=== PATIENT | female | born 1955 | race African-American/Black ===

== ENCOUNTER 2022-02-07 18:43 | Inpatient (IN) | payer OTHER ==
[~2022-02-07] VITALS: Ht 167.6 cm; Wt 125.3 kg
[2022-02-07 19:54] LABS: BASOPHILS % 0.4 % (0.0-2.0); EOSINOPHILS % 0.8 % (0.0-5.0); HEMATOCRIT. 38.8 % (36.0-48.0); HEMOGLOBIN. 12.6 g/dL (12.0-16.0); LYMPHOCYTES % 10.1 % (20.0-50.0); MEAN PLATELET VOLUME 8.1 fl (7.4-10.4); MONOCYTES % 9.1 % (2.0-8.0); NEUTROPHILS % 79.6 % (40.0-76.0); PLATELET 230 x1000/uL (130-400); RED BLOOD CELL COUNT 4.51 mill/uL (4.2-5.4); RED CELL DISTRIBUTION WIDTH 14.3 % (11.6-14.6)
[2022-02-07 19:59] LABS: CHLORIDE 97 mEq/L (98-107)
[2022-02-07 20:06] LABS: ETHANOL BLOOD < 10 mg/dL
[2022-02-07] MEDS ORDERED: IOHEXOL-350 100 ML BOTTLE ONE (20:06)
[2022-02-07 20:13] LABS: CLARITY URINE CLEAR (CLEAR); COLOR URINE YELLOW (YELLOW); KETONES URINE 1+ (NEGATIVE); LEUKOCYTE ESTERASE URINE NEGATIVE (NEGATIVE); NITRITE URINE NEGATIVE (NEGATIVE); OCCULT BLOOD URINE NEGATIVE (NEGATIVE); PROTEIN URINE NEGATIVE (NEGATIVE); SPECIFIC GRAVITY URINE 1.023 (1.005-1.030); UROBILINOGEN URINE 0.2 E.U./dL (0.2-1.0)
[2022-02-07] MEDS ORDERED: ACETAMINOPHEN 325MG TABLET PO ONE (20:15)
[2022-02-07] MEDS ORDERED: SODIUM CHLORIDE 0.9% 1,000 ML IV ONE (20:15)
[2022-02-07 20:23] LABS: *AMPHETAMINES SCREEN URINE NEGATIVE (NEGATIVE); *BARBITURATES SCREEN URINE NEGATIVE (NEGATIVE); *BENZODIAZEPINES SCREEN URINE NEGATIVE (NEGATIVE); *COCAINE SCREEN URINE NEGATIVE (NEGATIVE); CANNABINOID URINE SCREEN NEGATIVE (NEGATIVE); METHADONE URINE SCREEN NEGATIVE (NEGATIVE); OPIATES URINE SCREEN NEGATIVE (NEGATIVE); PHENCYCLIDINE URINE SCREEN NEGATIVE (NEGATIVE)
[2022-02-07] MEDS ORDERED: VANCOMYCIN 1G PREMIX 200 ML IV SCH (20:30)
[2022-02-07] MEDS ORDERED: CEFTRIAXONE 2 G PREMIX 50 ML IV ONE (20:30)
[2022-02-07] MEDS ORDERED: AMPICILLIN 2,000 MG in SODIUM CHLORIDE 0.9% 100 ML IV SCH (20:30)
[2022-02-07 21:03] LABS: BG BASE EXCESS -0.2 mmol/L (-2.0-2.0); BG CARBOXYHEMOGLOBIN 0.9 % (0.5-1.5); BG DEOXYHEMOGLOBIN 7.3 % (0.0-5.0); BG FRACTION INSPIRED OXYGEN 21; BG METHEMOGLOBIN 0.1 % (0.0-1.5); BG OXYGEN SATURATION 92.6 % (92.0-98.5); BG OXYHEMOGLOBIN 91.7 % (94.0-97.0); BG PCO2 33.1 mmHg (35.0-45.0); BG PO2 63.9 mmHg (75.0-100.0); BG SAMPLE SITE RIGHT RADIAL; BG TOTAL HEMOGLOBIN 12.9 g/dL (12.0-18.0); BG VENT MODE ROOM AIR
[2022-02-07] MEDS ORDERED: ACETAMINOPHEN 325MG SUPP PR PRN (23:23)
[2022-02-08] MEDS ORDERED: ACETAMINOPHEN 650MG SUPP PR PRN ×2 (04:00)
[2022-02-08] MEDS ORDERED: DEXTROSE 50% WATER 50ML SYRINGE IV PRN (04:00)
[2022-02-08] MEDS ORDERED: HYDRALAZINE 20MG/ML VIAL IV PRN (04:00)
[2022-02-08] MEDS ORDERED: ONDANSETRON HCL 4MG/2ML INJ IV PRN (04:00)
[2022-02-08] MEDS ORDERED: IPRATROPIUM/ALBUTEROL 0.5-3(2.5)MG/3ML NEB NEB PRN (04:00)
[2022-02-08] MEDS: SODIUM CHLORIDE 0.9% 1,000 ML IV SCH ×2 (05:03→22:51)
[2022-02-08 06:29] LABS: BASOPHILS % 0.6 % (0.0-2.0); EOSINOPHILS % 0.3 % (0.0-5.0); HEMATOCRIT. 41.7 % (36.0-48.0); LYMPHOCYTES % 15.9 % (20.0-50.0); MEAN CORPUSCULAR HEMOGLOBIN 28.8 pg (28.0-32.0); MEAN CORPUSCULAR VOLUME 85.8 fL (81.0-99.0); MEAN PLATELET VOLUME 8.2 fl (7.4-10.4); MONOCYTES % 10.8 % (2.0-8.0); NEUTROPHILS % 72.4 % (40.0-76.0); PLATELET 193 x1000/uL (130-400); RED BLOOD CELL COUNT 4.85 mill/uL (4.2-5.4); RED CELL DISTRIBUTION WIDTH 14.1 % (11.6-14.6)
[2022-02-08 06:37] LABS: CHLORIDE 97 mEq/L (98-107)
[2022-02-08 06:40] LABS: HDL CHOLESTEROL 41 mg/dL (40-59); LDL CHOLESTEROL 90 mg/dL (5-100)
[2022-02-08] MEDS: INSULIN LISPRO 100 UNITS/ML SUBCUT SCH ×4 (06:45→21:51)
[2022-02-08] MEDS: PIPERACILLIN/TAZOBACTAM 3.375 G in DEXTROSE 5% WATER 50 ML IV SCH ×3 (06:46→22:53)
[2022-02-08] MEDS: BLOOD SUGAR DIAGNOSTIC STRIP TEST SCH ×4 (06:46→21:51)
[2022-02-08] MEDS ORDERED: VANCOMYCIN 1G PREMIX 200 ML IV SCH (09:15)
[2022-02-08] MEDS ORDERED: VANCOMYCIN 1.25GM PMX (XELLIA) 250 ML IV SCH (14:00)
[2022-02-08 16:28] VITALS: BP 134/56
[2022-02-08 16:29] VITALS: BP 175/87
[2022-02-08] MEDS ORDERED: HYDROCODONE/ACETAMINOPHEN 5/325MG TABLET PO PRN (17:00)
[2022-02-08] MEDS ORDERED: MAGNESIUM/ALUMINUM HYDROXIDE/SIMETHICONE 30ML UDC PO PRN (17:00)
[2022-02-08] MEDS ORDERED: NALOXONE HCL 0.4MG/ML VIAL IV PRN (17:15)
[2022-02-08] MEDS: ASPIRIN 81MG TABLET PO SCH (17:35)
[2022-02-08] MEDS ORDERED: *PATIENT'S OWN MEDICATION STORAGE XX SCH (18:15)
[2022-02-08] MEDS ORDERED: DICL75TA5 PO (19:41)
[2022-02-08 20:00] VITALS: BP 114/54
[2022-02-08] MEDS: FAMOTIDINE 20MG TABLET PO SCH (21:49)
[2022-02-08] MEDS: ENOXAPARIN 30MG/0.3ML SYR SUBCUT SCH (21:50)
[2022-02-08] MEDS: ACETAMINOPHEN 325MG TABLET PO PRN (23:43)
[2022-02-09] VITALS: BP 108/71
[2022-02-09] MEDS ORDERED: Metformin (04:39)
[2022-02-09] MEDS: PIPERACILLIN/TAZOBACTAM 3.375 G in DEXTROSE 5% WATER 50 ML IV SCH ×3 (06:45→22:44)
[2022-02-09] MEDS: BLOOD SUGAR DIAGNOSTIC STRIP TEST SCH ×4 (06:45→21:00)
[2022-02-09] MEDS: VANCOMYCIN 1GM PMX (XELLIA) 200 ML IV SCH (06:45)
[2022-02-09] MEDS ORDERED: OMEP10CA5 MT (07:30)
[2022-02-09] MEDS ORDERED: hum (07:30)
[2022-02-09] MEDS ORDERED: ATOR10TA69 MT (07:30)
[2022-02-09] MEDS ORDERED: ATEN-42 PO (07:30)
[2022-02-09] MEDS ORDERED: METF-414 MT (07:32)
[2022-02-09] MEDS ORDERED: humalog (07:32)
[2022-02-09 08:00] VITALS: BP 153/59
[2022-02-09] MEDS: ENOXAPARIN 30MG/0.3ML SYR SUBCUT SCH ×2 (08:20→22:28)
[2022-02-09] MEDS: ASPIRIN 81MG TABLET PO SCH (08:20)
[2022-02-09] MEDS: FAMOTIDINE 20MG TABLET PO SCH ×2 (08:20→22:28)
[2022-02-09] MEDS: INSULIN LISPRO 100 UNITS/ML SUBCUT SCH ×3 (08:23→22:28)
[2022-02-09 12:00] VITALS: BP 138/54
[2022-02-09 16:00] VITALS: BP 113/71
[2022-02-09] MEDS: ACETAMINOPHEN 325MG TABLET PO PRN (19:04)
[2022-02-09 20:00] VITALS: BP 139/58
[2022-02-09] MEDS: SODIUM CHLORIDE 0.9% 1,000 ML IV SCH (20:00)
[2022-02-10] VITALS: BP 139/58
[2022-02-10] MEDS: ACETAMINOPHEN 325MG TABLET PO PRN (02:27)
[2022-02-10] MEDS: VANCOMYCIN 1GM PMX (XELLIA) 200 ML IV SCH (02:28)
[2022-02-10 04:00] VITALS: BP 140/59
[2022-02-10] MEDS: BLOOD SUGAR DIAGNOSTIC STRIP TEST SCH ×4 (06:47→21:57)
[2022-02-10] MEDS: PIPERACILLIN/TAZOBACTAM 3.375 G in DEXTROSE 5% WATER 50 ML IV SCH ×3 (06:47→22:23)
[2022-02-10] MEDS: INSULIN LISPRO 100 UNITS/ML SUBCUT SCH ×4 (07:00→22:23)
[2022-02-10 08:00] VITALS: BP 180/60
[2022-02-10 08:01] LABS: CHLORIDE 99 mEq/L (98-107)
[2022-02-10] MEDS: ASPIRIN 81MG TABLET PO SCH (09:29)
[2022-02-10] MEDS: ENOXAPARIN 30MG/0.3ML SYR SUBCUT SCH ×2 (09:30→22:06)
[2022-02-10] MEDS: FAMOTIDINE 20MG TABLET PO SCH ×2 (09:30→21:00)
[2022-02-10] MEDS: CLONIDINE 0.1MG TABLET PO PRN (09:30)
[2022-02-10] MEDS: ATENOLOL 25MG TABLET PO SCH (10:00)
[2022-02-10 12:00] VITALS: BP 92/54
[2022-02-10] MEDS: VANCOMYCIN 1500MG in DEXTROSE 5% WATER 250ML IV SCH (12:52)
[2022-02-10] MEDS ORDERED: LORAZEPAM 0.5MG TABLET PO SCH (13:45)
[2022-02-10 16:00] VITALS: BP 150/63
[2022-02-10] MEDS: SODIUM CHLORIDE 0.9% 1,000 ML IV SCH (17:06)
[2022-02-10 19:02] LABS: T4 FREE 1.29 ng/dL (0.76-1.46)
[2022-02-10 20:00] VITALS: BP 87/57
[2022-02-10] MEDS: ATORVASTATIN CALCIUM 10MG TABLET PO SCH (21:00)
[2022-02-10] MEDS: INSULIN GLARGINE 100 UNITS/ML SUBCUT SCH (22:23)
[2022-02-11] VITALS: BP 171/72
[2022-02-11] MEDS: ACETAMINOPHEN 325MG TABLET PO PRN (00:34)
[2022-02-11] MEDS: DIPHENHYDRAMINE 50MG/ML VIAL IV PRN (01:35)
[2022-02-11 04:00] VITALS: BP 124/66
[2022-02-11] MEDS: VANCOMYCIN 1500MG in DEXTROSE 5% WATER 250ML IV SCH ×2 (05:20→17:21)
[2022-02-11] MEDS: PIPERACILLIN/TAZOBACTAM 3.375 G in DEXTROSE 5% WATER 50 ML IV SCH (07:02)
[2022-02-11] MEDS: SODIUM CHLORIDE 0.9% 1,000 ML IV SCH ×2 (07:03→17:19)
[2022-02-11] MEDS: BLOOD SUGAR DIAGNOSTIC STRIP TEST SCH ×4 (07:15→20:21)
[2022-02-11] MEDS: INSULIN LISPRO 100 UNITS/ML SUBCUT SCH ×4 (07:21→21:09)
[2022-02-11 08:30] VITALS: BP 98/68
[2022-02-11] MEDS: ATENOLOL 25MG TABLET PO SCH (09:00)
[2022-02-11] MEDS: ASPIRIN 81MG TABLET PO SCH (09:00)
[2022-02-11] MEDS: FAMOTIDINE 20MG TABLET PO SCH ×2 (09:00→21:07)
[2022-02-11] MEDS: ENOXAPARIN 30MG/0.3ML SYR SUBCUT SCH ×2 (10:06→21:07)
[2022-02-11 12:00] VITALS: BP 99/66
[2022-02-11 12:45] LABS: CHLORIDE 104 mEq/L (98-107)
[2022-02-11 12:51] LABS: HEMATOCRIT. 38.9 % (36.0-48.0); HEMOGLOBIN. 12.8 g/dL (12.0-16.0); MEAN CORPUSCULAR HEMOGLOBIN 28.4 pg (28.0-32.0); MEAN CORPUSCULAR VOLUME 86.1 fL (81.0-99.0); MEAN PLATELET VOLUME 8.4 fl (7.4-10.4); PLATELET 193 x1000/uL (130-400); RED BLOOD CELL COUNT 4.52 mill/uL (4.2-5.4); RED CELL DISTRIBUTION WIDTH 14.1 % (11.6-14.6)
[2022-02-11] MEDS: LEVOFLOXACIN 500MG PREMIX 100 ML IV SCH (13:04)
[2022-02-11 13:40] LABS: PLATELET ESTIMATE NORMAL
[2022-02-11] MEDS ORDERED: SODIUM CHLORIDE 0.9% 1,000 ML IV ONE (14:00)
[2022-02-11 16:00] VITALS: BP 119/64
[2022-02-11] MEDS: ACETAMINOPHEN 650MG SUPP PR PRN (17:20)
[2022-02-11] MEDS ORDERED: FAMO-135 PO (19:15)
[2022-02-11] MEDS ORDERED: EPIN0.3P3 IM (19:15)
[2022-02-11] MEDS ORDERED: OMEP20CA14 PO (19:15)
[2022-02-11] MEDS ORDERED: DIPH25TA23 PO (19:15)
[2022-02-11] MEDS ORDERED: HYDR25TA PO (19:15)
[2022-02-11] MEDS ORDERED: ASPI-1497 PO (19:15)
[2022-02-11] MEDS ORDERED: METF-874 PO (19:15)
[2022-02-11] MEDS ORDERED: NAPR-681 PO (19:15)
[2022-02-11] MEDS ORDERED: LOSA25TA26 PO (19:15)
[2022-02-11 20:00] VITALS: BP_SYST 94; BP_DIAS 61; BP_DIAS 64
[2022-02-11] MEDS: ATORVASTATIN CALCIUM 10MG TABLET PO SCH (21:07)
[2022-02-11] MEDS: INSULIN GLARGINE 100 UNITS/ML SUBCUT SCH (21:08)
[2022-02-12] VITALS: BP 119/77
[2022-02-12] MEDS: ACETAMINOPHEN 325MG TABLET PO PRN ×3 (00:26→15:58)
[2022-02-12] MEDS: DIPHENHYDRAMINE 50MG/ML VIAL IV PRN ×3 (01:12→17:23)
[2022-02-12] MEDS: SODIUM CHLORIDE 0.9% 1,000 ML IV SCH ×3 (01:22→22:12)
[2022-02-12 04:00] VITALS: BP 149/72
[2022-02-12] MEDS: BLOOD SUGAR DIAGNOSTIC STRIP TEST SCH ×4 (06:20→21:00)
[2022-02-12] MEDS: VANCOMYCIN 1500MG in DEXTROSE 5% WATER 250ML IV SCH ×2 (06:32→17:27)
[2022-02-12] MEDS: INSULIN LISPRO 100 UNITS/ML SUBCUT SCH ×4 (06:38→21:19)
[2022-02-12 08:00] VITALS: BP 132/58
[2022-02-12] MEDS: ENOXAPARIN 30MG/0.3ML SYR SUBCUT SCH ×2 (08:12→21:18)
[2022-02-12 08:13] LABS: BASOPHILS % 0.1 % (0.0-2.0); EOSINOPHILS % 6.7 % (0.0-5.0); HEMATOCRIT. 40.1 % (36.0-48.0); HEMOGLOBIN. 13.4 g/dL (12.0-16.0); MEAN CORPUSCULAR HEMOGLOBIN 28.7 pg (28.0-32.0); MEAN PLATELET VOLUME 8.4 fl (7.4-10.4); NEUTROPHILS % 74.2 % (40.0-76.0); PLATELET 210 x1000/uL (130-400); RED BLOOD CELL COUNT 4.66 mill/uL (4.2-5.4); RED CELL DISTRIBUTION WIDTH 14.2 % (11.6-14.6)
[2022-02-12] MEDS: ATENOLOL 25MG TABLET PO SCH (08:13)
[2022-02-12] MEDS: ASPIRIN 81MG TABLET PO SCH (08:13)
[2022-02-12] MEDS: FAMOTIDINE 20MG TABLET PO SCH ×2 (08:13→21:17)
[2022-02-12 08:16] LABS: CHLORIDE 100 mEq/L (98-107)
[2022-02-12 08:28] LABS: PHOSPHORUS 1.9 mg/dL (2.5-4.9); VANCOMYCIN TROUGH 6.2 ug/mL (5.0-10.0)
[2022-02-12] MEDS ORDERED: POTASSIUM CHLORIDE 20MEQ TABLET SR PO NR (09:15)
[2022-02-12] MEDS ORDERED: MAGNESIUM 2 G PREMIX 50 ML IV NR (09:15)
[2022-02-12] MEDS: LEVOFLOXACIN 500MG PREMIX 100 ML IV SCH (11:56)
[2022-02-12] MEDS: CLONIDINE 0.1MG TABLET PO PRN ×2 (11:56→21:17)
[2022-02-12 12:00] VITALS: BP 138/111
[2022-02-12 16:00] VITALS: BP 125/56
[2022-02-12 20:00] VITALS: BP 171/72
[2022-02-12] MEDS: ATORVASTATIN CALCIUM 10MG TABLET PO SCH (21:17)
[2022-02-12] MEDS: INSULIN GLARGINE 100 UNITS/ML SUBCUT SCH (21:19)
[2022-02-13] VITALS (28 sets, daily range): BP systolic 94–150; BP diastolic 43–70
[2022-02-13] MEDS: VANCOMYCIN 1500MG in DEXTROSE 5% WATER 250ML IV SCH ×2 (05:42→19:00)
[2022-02-13 06:07] LABS: BASOPHILS % 0.2 % (0.0-2.0); EOSINOPHILS % 5.1 % (0.0-5.0); HEMATOCRIT. 39.6 % (36.0-48.0); HEMOGLOBIN. 13.2 g/dL (12.0-16.0); LYMPHOCYTES % 9.1 % (20.0-50.0); MEAN CORPUSCULAR HEMOGLOBIN 28.5 pg (28.0-32.0); MEAN CORPUSCULAR VOLUME 85.8 fL (81.0-99.0); MEAN PLATELET VOLUME 8.7 fl (7.4-10.4); MONOCYTES % 7.3 % (2.0-8.0); NEUTROPHILS % 78.3 % (40.0-76.0); PLATELET 237 x1000/uL (130-400); RED BLOOD CELL COUNT 4.62 mill/uL (4.2-5.4); RED CELL DISTRIBUTION WIDTH 14.3 % (11.6-14.6)
[2022-02-13] MEDS: BLOOD SUGAR DIAGNOSTIC STRIP TEST SCH ×4 (06:18→21:21)
[2022-02-13] MEDS: INSULIN LISPRO 100 UNITS/ML SUBCUT SCH ×4 (06:29→21:30)
[2022-02-13 07:28] LABS: CHLORIDE 99 mEq/L (98-107)
[2022-02-13 07:34] LABS: PHOSPHORUS 1.2 mg/dL (2.5-4.9)
[2022-02-13] MEDS: ASPIRIN 81MG TABLET PO SCH (08:53)
[2022-02-13] MEDS: FAMOTIDINE 20MG TABLET PO SCH ×2 (08:53→21:29)
[2022-02-13] MEDS: ATENOLOL 25MG TABLET PO SCH (08:54)
[2022-02-13] MEDS: ENOXAPARIN 30MG/0.3ML SYR SUBCUT SCH (08:54)
[2022-02-13] MEDS: SODIUM CHLORIDE 0.9% 1,000 ML IV SCH ×2 (09:09→18:22)
[2022-02-13] MEDS ORDERED: POTASSIUM-SODIUM PHOSPHATE POWDER PACKET PO NR (11:00)
[2022-02-13] MEDS ORDERED: MAGNESIUM 2 G PREMIX 50 ML IV NR (11:00)
[2022-02-13] MEDS ORDERED: POLYMYXIN B SULFATE 500000 UNITS/VIAL ONE (11:03)
[2022-02-13] MEDS ORDERED: HEPARIN SODIUM 1,000 UNIT/1ML VIAL IV ONE (11:03)
[2022-02-13] MEDS ORDERED: THROMBIN (BOVINE) 5000 UNITS/VIAL TOP ONE ×2 (11:03→11:05)
[2022-02-13] MEDS ORDERED: BACITRACIN 15GM TUBE TOP ONE (11:03)
[2022-02-13] MEDS ORDERED: LIDOCAINE HCL 1% 10 MG/ML 10ML VIAL ONE ×2 (11:03→14:54)
[2022-02-13] MEDS ORDERED: BUPIVACAINE HCL/PF 0.5% (5MG/ML) 10ML ONE (11:04)
[2022-02-13] MEDS: DIPHENHYDRAMINE 50MG/ML VIAL IV PRN (11:32)
[2022-02-13] MEDS: LEVOFLOXACIN 500MG PREMIX 100 ML IV SCH (11:33)
[2022-02-13] MEDS: ACETAMINOPHEN 650MG SUPP PR PRN ×2 (12:18→17:43)
[2022-02-13] MEDS ORDERED: NICARDIPINE 40MG/200ML PREMIX 200 ML IV PRN (14:45)
[2022-02-13] MEDS ORDERED: SUCCINYLCHOLINE CHLORIDE 200MG/10ML IV ONE (14:54)
[2022-02-13] MEDS ORDERED: ONDANSETRON HCL 4MG/2ML INJ ONE (14:54)
[2022-02-13] MEDS ORDERED: CEFAZOLIN SODIUM 1000MG/VIAL ONE (14:54)
[2022-02-13] MEDS ORDERED: DEXAMETHASONE 4MG/ML 1ML VIAL ONE (14:54)
[2022-02-13] MEDS ORDERED: NEOSTIGMINE METHYLSULFATE 1MG/ML 10 ML VIAL ONE (14:55)
[2022-02-13] MEDS ORDERED: PROPOFOL 200MG/20ML VIAL IV ONE (14:55)
[2022-02-13] MEDS ORDERED: ROCURONIUM BROMIDE 10MG/ML VIAL 5ML IV ONE (14:55)
[2022-02-13] MEDS ORDERED: FENTANYL CITRATE/PF 50MCG/ML 2ML VIAL ONE (14:56)
[2022-02-13] MEDS ORDERED: MIDAZOLAM HCL 2 MG/2 ML VIAL ONE (14:56)
[2022-02-13] MEDS ORDERED: GLYCOPYRROLATE 0.2 MG/ML 2ML VIAL ONE (15:10)
[2022-02-13] MEDS ORDERED: CLINDAMYCIN 900 MG PREMIX 50 ML IV ONE (15:11)
[2022-02-13] MEDS ORDERED: PHENYLEPHRINE HCL 10 MG/ML 1ML (IV VIAL) IV ONE (16:12)
[2022-02-13] MEDS ORDERED: HEPARIN 1000 UNITS/ML 10ML ONE (16:34)
[2022-02-13] MEDS ORDERED: ONDANSETRON HCL 4MG/2ML INJ IV PRN (17:00)
[2022-02-13] MEDS ORDERED: FENTANYL CITRATE/PF 50MCG/ML 2ML VIAL IV PRN (17:00)
[2022-02-13] MEDS ORDERED: ATROPINE SULFATE 0.4MG/ML VIAL IV PRN (17:00)
[2022-02-13] MEDS ORDERED: HYDROMORPHONE HCL/PF 2MG/ML CPJ IV PRN (17:00)
[2022-02-13] MEDS: ATORVASTATIN CALCIUM 10MG TABLET PO SCH (21:29)
[2022-02-13] MEDS: INSULIN GLARGINE 100 UNITS/ML SUBCUT SCH (21:30)
[2022-02-13 22:25] LABS: BG BASE EXCESS -5.1 mmol/L (-2.0-2.0); BG DEOXYHEMOGLOBIN 1.2 % (0.0-5.0); BG FRACTION INSPIRED OXYGEN 60; BG METHEMOGLOBIN 0.3 % (0.0-1.5); BG OXYGEN SATURATION 98.8 % (92.0-98.5); BG OXYHEMOGLOBIN 97.5 % (94.0-97.0); BG PCO2 28.4 mmHg (35.0-45.0); BG PH 7.419 (7.350-7.450); BG PO2 163.2 mmHg (75.0-100.0); BG SAMPLE SITE RIGHT RADIAL; BG TOTAL HEMOGLOBIN 13.9 g/dL (12.0-18.0); BG VENT MODE MASK - SIMPLE
[2022-02-14] VITALS (45 sets, daily range): BP systolic 91–144; BP diastolic 40–120
[2022-02-14] MEDS: DIPHENHYDRAMINE 50MG/ML VIAL IV PRN ×2 (03:53→10:53)
[2022-02-14] MEDS: ACETAMINOPHEN 650MG SUPP PR PRN ×3 (03:53→20:43)
[2022-02-14] MEDS: SODIUM CHLORIDE 0.9% 1,000 ML IV SCH ×2 (03:53→05:00)
[2022-02-14 04:38] LABS: BASOPHILS % 0.1 % (0.0-2.0); EOSINOPHILS % 3.4 % (0.0-5.0); HEMATOCRIT. 38.7 % (36.0-48.0); HEMOGLOBIN. 12.7 g/dL (12.0-16.0); LYMPHOCYTES % 9.8 % (20.0-50.0); MEAN CORPUSCULAR HEMOGLOBIN 28.1 pg (28.0-32.0); MEAN CORPUSCULAR VOLUME 85.7 fL (81.0-99.0); MEAN PLATELET VOLUME 9.2 fl (7.4-10.4); MONOCYTES % 6.6 % (2.0-8.0); NEUTROPHILS % 80.1 % (40.0-76.0); PLATELET 226 x1000/uL (130-400); RED BLOOD CELL COUNT 4.51 mill/uL (4.2-5.4); RED CELL DISTRIBUTION WIDTH 14.5 % (11.6-14.6)
[2022-02-14 04:49] LABS: CHLORIDE 103 mEq/L (98-107)
[2022-02-14 04:55] LABS: PHOSPHORUS 1.6 mg/dL (2.5-4.9)
[2022-02-14] MEDS: BLOOD SUGAR DIAGNOSTIC STRIP TEST SCH ×4 (06:24→21:00)
[2022-02-14] MEDS: MORPHINE SULFATE 4 MG/ML CPJ (NOT FOR IM USE) IV PRN (06:29)
[2022-02-14] MEDS: INSULIN LISPRO 100 UNITS/ML SUBCUT SCH ×6 (06:30→21:23)
[2022-02-14] MEDS: ATENOLOL 25MG TABLET PO SCH ×2 (08:16→09:00)
[2022-02-14] MEDS: DOCUSATE SODIUM 100MG CAPSULE PO PRN (08:16)
[2022-02-14] MEDS: FAMOTIDINE 20MG TABLET PO SCH ×3 (08:16→21:13)
[2022-02-14 08:28] LABS: BG BASE EXCESS -2.6 mmol/L (-2.0-2.0); BG CARBOXYHEMOGLOBIN 0.1 % (0.5-1.5); BG DEOXYHEMOGLOBIN 0.9 % (0.0-5.0); BG HCO3 ACT 20.9 mmol/L (22.0-26.0); BG METHEMOGLOBIN 0.1 % (0.0-1.5); BG OXYGEN SATURATION 99.1 % (92.0-98.5); BG OXYHEMOGLOBIN 98.9 % (94.0-97.0); BG PCO2 32.5 mmHg (35.0-45.0); BG PH 7.427 (7.350-7.450); BG PO2 289.7 mmHg (75.0-100.0); BG SAMPLE SITE RIGHT RADIAL; BG TOTAL HEMOGLOBIN 12.8 g/dL (12.0-18.0); BG VENT MODE MASK - BIPAP
[2022-02-14] MEDS: LEVOFLOXACIN 500MG PREMIX 100 ML IV SCH (12:18)
[2022-02-14] MEDS ORDERED: METHYLPREDNISOLONE SOD SUCC 125 MG/2 ML VIAL IV NR (15:00)
[2022-02-14] MEDS: ATORVASTATIN CALCIUM 10MG TABLET PO SCH (21:13)
[2022-02-14] MEDS: INSULIN GLARGINE 100 UNITS/ML SUBCUT SCH (21:23)
[2022-02-15] VITALS: BP 112/47
[2022-02-15] MEDS: SODIUM CHLORIDE 0.9% 1,000 ML IV SCH ×3 (00:04→20:49)
[2022-02-15 04:00] VITALS: BP 128/50
[2022-02-15] MEDS: BLOOD SUGAR DIAGNOSTIC STRIP TEST SCH ×4 (05:57→20:49)
[2022-02-15] MEDS: INSULIN LISPRO 100 UNITS/ML SUBCUT SCH ×6 (06:08→20:48)
[2022-02-15 06:56] LABS: BASOPHILS % 0.4 % (0.0-2.0); EOSINOPHILS % 0.6 % (0.0-5.0); HEMATOCRIT. 34.6 % (36.0-48.0); HEMOGLOBIN. 11.3 g/dL (12.0-16.0); LYMPHOCYTES % 19.6 % (20.0-50.0); MEAN CORPUSCULAR HEMOGLOBIN 28.7 pg (28.0-32.0); MEAN CORPUSCULAR VOLUME 87.6 fL (81.0-99.0); MEAN PLATELET VOLUME 8.9 fl (7.4-10.4); MONOCYTES % 6.5 % (2.0-8.0); NEUTROPHILS % 72.9 % (40.0-76.0); PLATELET 164 x1000/uL (130-400); RED BLOOD CELL COUNT 3.95 mill/uL (4.2-5.4); RED CELL DISTRIBUTION WIDTH 14.8 % (11.6-14.6)
[2022-02-15 08:00] VITALS: BP 138/56
[2022-02-15 08:13] LABS: CHLORIDE 107 mEq/L (98-107)
[2022-02-15 08:22] LABS: PHOSPHORUS 2.3 mg/dL (2.5-4.9)
[2022-02-15] MEDS: ATENOLOL 25MG TABLET PO SCH (08:49)
[2022-02-15] MEDS: FAMOTIDINE 20MG TABLET PO SCH ×2 (08:49→20:48)
[2022-02-15] MEDS: LEVOFLOXACIN 500MG PREMIX 100 ML IV SCH (11:22)
[2022-02-15 12:00] VITALS: BP 116/54
[2022-02-15 17:00] VITALS: BP 124/58
[2022-02-15] MEDS ORDERED: NALOXONE HCL 0.4MG/ML VIAL IV PRN (17:15)
[2022-02-15] MEDS: DIPHENHYDRAMINE 50MG/ML VIAL IV PRN (18:45)
[2022-02-15 20:00] VITALS: BP 116/50
[2022-02-15] MEDS: ATORVASTATIN CALCIUM 40MG TABLET PO SCH (20:48)
[2022-02-15] MEDS: INSULIN GLARGINE 100 UNITS/ML SUBCUT SCH (21:49)
[2022-02-16] VITALS: BP 129/51
[2022-02-16] MEDS: ACETAMINOPHEN 325MG TABLET PO PRN (00:46)
[2022-02-16 04:00] VITALS: BP 95/58
[2022-02-16] MEDS: DIPHENHYDRAMINE 50MG/ML VIAL IV PRN ×2 (04:27→14:57)
[2022-02-16] MEDS: INSULIN LISPRO 100 UNITS/ML SUBCUT SCH ×7 (06:08→21:00)
[2022-02-16] MEDS: BLOOD SUGAR DIAGNOSTIC STRIP TEST SCH ×4 (06:09→21:28)
[2022-02-16 08:00] VITALS: BP 110/50
[2022-02-16] MEDS: FAMOTIDINE 20MG TABLET PO SCH ×2 (08:08→21:42)
[2022-02-16] MEDS: ATENOLOL 25MG TABLET PO SCH (08:08)
[2022-02-16] MEDS: SODIUM CHLORIDE 0.9% 1,000 ML IV SCH ×2 (08:12→17:26)
[2022-02-16] MEDS: LEVOFLOXACIN 500MG PREMIX 100 ML IV SCH (10:44)
[2022-02-16 12:00] VITALS: BP 100/50
[2022-02-16 16:00] VITALS: BP 118/55
[2022-02-16] MEDS ORDERED: CETIRIZINE 10MG TABLET PO PRN (17:15)
[2022-02-16 20:00] VITALS: BP 121/52
[2022-02-16] MEDS: ATORVASTATIN CALCIUM 40MG TABLET PO SCH (21:42)
[2022-02-16] MEDS: INSULIN GLARGINE 100 UNITS/ML SUBCUT SCH (21:44)
[2022-02-17] VITALS: BP 148/68
[2022-02-17] MEDS: SODIUM CHLORIDE 0.9% 1,000 ML IV SCH ×3 (02:43→22:12)
[2022-02-17 04:00] VITALS: BP 138/62
[2022-02-17] MEDS: BLOOD SUGAR DIAGNOSTIC STRIP TEST SCH ×4 (05:58→21:00)
[2022-02-17] MEDS: INSULIN LISPRO 100 UNITS/ML SUBCUT SCH ×7 (05:59→21:54)
[2022-02-17 08:00] VITALS: BP 142/62
[2022-02-17] MEDS: FAMOTIDINE 20MG TABLET PO SCH ×2 (09:00→21:53)
[2022-02-17] MEDS: ATENOLOL 25MG TABLET PO SCH (10:28)
[2022-02-17] MEDS: MORPHINE SULFATE 4 MG/ML CPJ (NOT FOR IM USE) IV PRN ×2 (11:54→21:55)
[2022-02-17 12:00] VITALS: BP_SYST 102; BP_SYST 121; BP_DIAS 48; BP_DIAS 68
[2022-02-17 12:29] LABS: BASOPHILS % 0.6 % (0.0-2.0); EOSINOPHILS % 4.9 % (0.0-5.0); HEMATOCRIT. 33.6 % (36.0-48.0); LYMPHOCYTES % 29.8 % (20.0-50.0); MEAN CORPUSCULAR HEMOGLOBIN 28.4 pg (28.0-32.0); MEAN PLATELET VOLUME 8.3 fl (7.4-10.4); MONOCYTES % 12.3 % (2.0-8.0); NEUTROPHILS % 52.4 % (40.0-76.0); PLATELET 184 x1000/uL (130-400); RED BLOOD CELL COUNT 3.86 mill/uL (4.2-5.4)
[2022-02-17 12:47] LABS: CHLORIDE 106 mEq/L (98-107)
[2022-02-17] MEDS ORDERED: POTASSIUM CHLORIDE 20MEQ TABLET SR PO NR (13:30)
[2022-02-17 16:00] VITALS: BP 117/67
[2022-02-17 20:00] VITALS: BP 120/67
[2022-02-17] MEDS: ATORVASTATIN CALCIUM 40MG TABLET PO SCH (21:53)
[2022-02-17] MEDS: INSULIN GLARGINE 100 UNITS/ML SUBCUT SCH (21:54)
[2022-02-18] VITALS: BP 126/70
[2022-02-18 04:00] VITALS: BP 114/66
[2022-02-18] MEDS: BLOOD SUGAR DIAGNOSTIC STRIP TEST SCH ×4 (06:40→21:23)
[2022-02-18] MEDS: INSULIN LISPRO 100 UNITS/ML SUBCUT SCH ×7 (06:51→21:31)
[2022-02-18 08:06] VITALS: BP 115/60
[2022-02-18] MEDS: ATENOLOL 25MG TABLET PO SCH (08:42)
[2022-02-18] MEDS: SODIUM CHLORIDE 0.9% 1,000 ML IV SCH ×2 (08:42→18:12)
[2022-02-18] MEDS: FAMOTIDINE 20MG TABLET PO SCH ×2 (08:43→21:22)
[2022-02-18 12:00] VITALS: BP 117/86
[2022-02-18 12:57] LABS: BASOPHILS % 0.4 % (0.0-2.0); HEMATOCRIT. 32.2 % (36.0-48.0); HEMOGLOBIN. 10.7 g/dL (12.0-16.0); LYMPHOCYTES % 27.8 % (20.0-50.0); MEAN CORPUSCULAR HEMOGLOBIN 29.1 pg (28.0-32.0); MEAN CORPUSCULAR VOLUME 87.5 fL (81.0-99.0); MEAN PLATELET VOLUME 8.6 fl (7.4-10.4); MONOCYTES % 11.5 % (2.0-8.0); NEUTROPHILS % 56.3 % (40.0-76.0); PLATELET 157 x1000/uL (130-400); RED BLOOD CELL COUNT 3.69 mill/uL (4.2-5.4); RED CELL DISTRIBUTION WIDTH 14.7 % (11.6-14.6)
[2022-02-18 13:13] LABS: CHLORIDE 105 mEq/L (98-107)
[2022-02-18 16:00] VITALS: BP 131/63
[2022-02-18 20:00] VITALS: BP 159/60
[2022-02-18] MEDS: ATORVASTATIN CALCIUM 40MG TABLET PO SCH (21:22)
[2022-02-18] MEDS: INSULIN GLARGINE 100 UNITS/ML SUBCUT SCH (21:30)
[2022-02-19] VITALS: BP 110/86
[2022-02-19] MEDS: GUAIFENESIN 200MG/10ML SUGAR FREE UDC PO PRN (00:36)
[2022-02-19] MEDS: DIPHENHYDRAMINE 50MG/ML VIAL IV PRN (03:06)
[2022-02-19] MEDS: ACETAMINOPHEN 325MG TABLET PO PRN (03:07)
[2022-02-19 04:00] VITALS: BP 107/82
[2022-02-19] MEDS: BLOOD SUGAR DIAGNOSTIC STRIP TEST SCH ×4 (06:33→21:26)
[2022-02-19] MEDS: INSULIN LISPRO 100 UNITS/ML SUBCUT SCH ×7 (06:39→21:00)
[2022-02-19] MEDS: SODIUM CHLORIDE 0.9% 1,000 ML IV SCH ×2 (06:42→13:43)
[2022-02-19 08:00] VITALS: BP 144/71
[2022-02-19] MEDS: FAMOTIDINE 20MG TABLET PO SCH ×2 (08:27→21:26)
[2022-02-19] MEDS: ATENOLOL 25MG TABLET PO SCH (08:27)
[2022-02-19 12:00] VITALS: BP 125/64
[2022-02-19 16:00] VITALS: BP 125/60
[2022-02-19] MEDS: ASPIRIN 81MG TABLET PO SCH (17:10)
[2022-02-19 20:00] VITALS: BP 121/74
[2022-02-19] MEDS: ENOXAPARIN 40MG/0.4ML SYR SUBCUT SCH (21:00)
[2022-02-19] MEDS: INSULIN GLARGINE 100 UNITS/ML SUBCUT SCH (21:26)
[2022-02-19] MEDS: ATORVASTATIN CALCIUM 40MG TABLET PO SCH (21:26)
[2022-02-20] VITALS (7 sets, daily range): BP systolic 108–153; BP diastolic 57–80
[2022-02-20] MEDS: GUAIFENESIN 200MG/10ML SUGAR FREE UDC PO PRN ×2 (00:32→12:31)
[2022-02-20] MEDS: DIPHENHYDRAMINE 50MG/ML VIAL IV PRN ×2 (00:32→23:46)
[2022-02-20] MEDS: SODIUM CHLORIDE 0.9% 1,000 ML IV SCH ×3 (04:13→23:53)
[2022-02-20] MEDS: ACETAMINOPHEN 325MG TABLET PO PRN ×2 (06:17→23:46)
[2022-02-20] MEDS: INSULIN LISPRO 100 UNITS/ML SUBCUT SCH ×7 (06:32→21:00)
[2022-02-20] MEDS: BLOOD SUGAR DIAGNOSTIC STRIP TEST SCH ×4 (06:33→21:29)
[2022-02-20] MEDS: FAMOTIDINE 20MG TABLET PO SCH ×2 (09:41→22:01)
[2022-02-20] MEDS: ENOXAPARIN 40MG/0.4ML SYR SUBCUT SCH ×2 (09:41→22:01)
[2022-02-20] MEDS: ASPIRIN 81MG TABLET PO SCH (09:41)
[2022-02-20] MEDS: ATENOLOL 25MG TABLET PO SCH (09:42)
[2022-02-20 10:03] LABS: BASOPHILS % 0.8 % (0.0-2.0); EOSINOPHILS % 4.1 % (0.0-5.0); HEMATOCRIT. 30.8 % (36.0-48.0); HEMOGLOBIN. 9.9 g/dL (12.0-16.0); LYMPHOCYTES % 21.3 % (20.0-50.0); MEAN CORPUSCULAR HEMOGLOBIN 28.6 pg (28.0-32.0); MEAN CORPUSCULAR VOLUME 89.3 fL (81.0-99.0); MEAN PLATELET VOLUME 8.3 fl (7.4-10.4); MONOCYTES % 13.9 % (2.0-8.0); NEUTROPHILS % 59.9 % (40.0-76.0); PLATELET 176 x1000/uL (130-400); RED BLOOD CELL COUNT 3.45 mill/uL (4.2-5.4); RED CELL DISTRIBUTION WIDTH 15.7 % (11.6-14.6)
[2022-02-20 10:11] LABS: CHLORIDE 108 mEq/L (98-107)
[2022-02-20] MEDS ORDERED: POTASSIUM CHLORIDE 20MEQ/PACKET PO SCH (15:00)
[2022-02-20] MEDS: ATORVASTATIN CALCIUM 40MG TABLET PO SCH (22:01)
[2022-02-20] MEDS: INSULIN GLARGINE 100 UNITS/ML SUBCUT SCH (22:04)
[2022-02-20] MEDS: DOCUSATE SODIUM 100MG CAPSULE PO PRN (23:46)
[2022-02-21 04:00] VITALS: BP 143/64
[2022-02-21 06:21] LABS: HEMATOCRIT. 34.8 % (36.0-48.0); HEMOGLOBIN. 11.4 g/dL (12.0-16.0); MEAN CORPUSCULAR VOLUME 88.2 fL (81.0-99.0); MEAN PLATELET VOLUME 8.3 fl (7.4-10.4); PLATELET 198 x1000/uL (130-400); RED BLOOD CELL COUNT 3.95 mill/uL (4.2-5.4); RED CELL DISTRIBUTION WIDTH 15.6 % (11.6-14.6)
[2022-02-21] MEDS: BLOOD SUGAR DIAGNOSTIC STRIP TEST SCH ×4 (06:28→21:01)
[2022-02-21] MEDS: INSULIN LISPRO 100 UNITS/ML SUBCUT SCH ×7 (06:46→21:00)
[2022-02-21] MEDS: SODIUM CHLORIDE 0.9% 1,000 ML IV SCH ×2 (06:49→14:54)
[2022-02-21 08:00] VITALS: BP 162/68
[2022-02-21 09:43] LABS: CHLORIDE 106 mEq/L (98-107)
[2022-02-21 09:59] LABS: PHOSPHORUS 3.4 mg/dL (2.5-4.9)
[2022-02-21] MEDS: ASPIRIN 81MG TABLET PO SCH (10:28)
[2022-02-21] MEDS: ENOXAPARIN 40MG/0.4ML SYR SUBCUT SCH ×2 (10:29→20:59)
[2022-02-21] MEDS: DOCUSATE SODIUM 100MG CAPSULE PO PRN ×2 (10:29→15:42)
[2022-02-21] MEDS: ATENOLOL 25MG TABLET PO SCH (10:29)
[2022-02-21 10:31] LABS: PLATELET ESTIMATE NORMAL
[2022-02-21] MEDS: FAMOTIDINE 20MG TABLET PO SCH ×2 (10:31→20:59)
[2022-02-21 12:00] VITALS: BP 115/58
[2022-02-21] MEDS: GUAIFENESIN-DM 200MG-20MG/10ML UDC PO SCH ×3 (12:58→21:22)
[2022-02-21] MEDS ORDERED: MAGNESIUM 1 G PREMIX 100 ML IV NR (14:00)
[2022-02-21 16:00] VITALS: BP 153/58
[2022-02-21] MEDS: ACETAMINOPHEN 325MG TABLET PO PRN (17:59)
[2022-02-21 20:00] VITALS: BP 151/76
[2022-02-21] MEDS: GUAIFENESIN 200MG/10ML SUGAR FREE UDC PO PRN (20:59)
[2022-02-21] MEDS: INSULIN GLARGINE 100 UNITS/ML SUBCUT SCH (21:01)
[2022-02-22] VITALS: BP 104/69
[2022-02-22] MEDS: GUAIFENESIN-DM 200MG-20MG/10ML UDC PO SCH ×5 (01:07→16:54)
[2022-02-22] MEDS: SODIUM CHLORIDE 0.9% 1,000 ML IV SCH ×2 (01:13→12:59)
[2022-02-22 04:00] VITALS: BP 115/75
[2022-02-22] MEDS: BLOOD SUGAR DIAGNOSTIC STRIP TEST SCH ×3 (05:45→16:09)
[2022-02-22] MEDS: INSULIN LISPRO 100 UNITS/ML SUBCUT SCH ×6 (07:09→16:56)
[2022-02-22] MEDS: ACETAMINOPHEN 325MG TABLET PO PRN (07:51)
[2022-02-22 08:00] VITALS: BP 102/68
[2022-02-22] MEDS: ATENOLOL 25MG TABLET PO SCH (09:00)
[2022-02-22] MEDS: FAMOTIDINE 20MG TABLET PO SCH (09:03)
[2022-02-22] MEDS: ASPIRIN 81MG TABLET PO SCH (09:03)
[2022-02-22] MEDS: ENOXAPARIN 40MG/0.4ML SYR SUBCUT SCH (09:04)
[2022-02-22 12:00] VITALS: BP 130/88
[2022-02-22 16:00] VITALS: BP 111/66
[2022-02-22 16:29] VITALS: BP 111/66
== END 2022-02-22 18:35 | DRG 710 ==
LOC: ER 18:43 → EDBEDREQTM 19:05 → EDBEDREQ 19:05 → EDBEDREQSVC 21:15 → EDBEDREQTM 21:15 → MICUSO 21:28 → EDBEDREQSVC 21:34 → EDBEDREQTM 21:34 → 7EST 02-08 15:55 → 7WST 02-08 19:41 → 7EST 02-09 12:43 → MICUNO 02-13 18:16 → 7EST 02-14 18:40
PROVIDERS: ADMIT Hospitalist; ATTEND Hospitalist
PROC: 03CK0ZZ Extirpation of Matter from Right Internal Carotid Artery, Open Approach (ICD-10-PCS; principal; 2022-02-13)
PROC: 5A09357 Assistance with Respiratory Ventilation, Less than 24 Consecutive Hours, Continuous Positive Airway Pressure (ICD-10-PCS; 2022-02-13)
PROC: 03CM0ZZ Extirpation of Matter from Right External Carotid Artery, Open Approach (ICD-10-PCS; 2022-02-13)
PROC: 5A09357 Assistance with Respiratory Ventilation, Less than 24 Consecutive Hours, Continuous Positive Airway Pressure (ICD-10-PCS; 2022-02-15)
PROC: 4A00X4Z Measurement of Central Nervous Electrical Activity, External Approach (ICD-10-PCS; 2022-02-22)
DX: A41.89 Other specified sepsis (principal); J96.00 Acute respiratory failure, unspecified whether with hypoxia or hypercapnia; U07.1 COVID-19; G93.41 Metabolic encephalopathy; R17 Unspecified jaundice; I10 Essential (primary) hypertension; I65.23 Occlusion and stenosis of bilateral carotid arteries; E87.1 Hypo-osmolality and hyponatremia; G90.2 Horner's syndrome; E83.39 Other disorders of phosphorus metabolism; E83.42 Hypomagnesemia; M17.0 Bilateral primary osteoarthritis of knee; E78.5 Hyperlipidemia, unspecified; R74.01 Elevation of levels of liver transaminase levels; L50.9 Urticaria, unspecified; E11.65 Type 2 diabetes mellitus with hyperglycemia; E66.01 Morbid (severe) obesity due to excess calories; F41.1 Generalized anxiety disorder; H02.401 Unspecified ptosis of right eyelid; R29.6 Repeated falls; R21 Rash and other nonspecific skin eruption; Z68.41 Body mass index [BMI] 40.0-44.9, adult; Z88.0 Allergy status to penicillin
CPT/HCPCS: 36415; 36600; 70496; 70498; 70551; 71045; 73560; 80048; 80053; 80061; 80202; 80305; 80320; 81003; 82140; 82375; 82607; 82746; 82805; 82962; 83036; 83605; 83735; 84100; 84145; 84439; 84443; 84484; 85025; 85651; 87426; 88304; 88311; 92523; 92610; 93306; 93970; 94660; 97110; 97162; 97164; 97166; 97168; 97530; 97535; 99291; A6261; C1751; C1893; J0290; J0330; J0360; J0690; J0696; J1100; J1200; J1644; J1650; J1815; J1956; J2250; J2270; J2370; J2405; J2543; J2704; J2710; J2930; J3010; J3370; J3475; J3490; J7030; J7050; J7060; Q9967; G0480

== ENCOUNTER 2025-04-30 14:25 | Inpatient (IN) | payer MEDICAID, MEDICARE, OTHER ==
[~2025-04-30] VITALS: Ht 152.4 cm; Wt 127.5 kg
[~2025-04-30 14:25] MED LIST: INSULIN
[2025-04-30 14:28] VITALS: O2SAT 99
[2025-04-30 15:19] LABS: BASOPHILS % 0.4 % (0.0-2.0); EOSINOPHILS % 0.1 % (0.0-5.0); HEMATOCRIT. 37.9 % (36.0-48.0); HEMOGLOBIN. 12.2 g/dL (12.0-16.0); LYMPHOCYTES % 7.3 % (20.0-50.0); MEAN PLATELET VOLUME 8.3 fl (7.4-10.4); MONOCYTES % 4.1 % (2.0-8.0); NEUTROPHILS % 88.1 % (40.0-76.0); PLATELET 185 x1000/uL (130-400); RED BLOOD CELL COUNT 4.41 mill/uL (4.2-5.4); RED CELL DISTRIBUTION WIDTH 14.1 % (11.6-14.6)
[2025-04-30 15:24] LABS: INR 1.1
[2025-04-30 15:26] LABS: CREATININE 0.8 mg/dL (0.6-1.0)
[2025-04-30 15:27] LABS: PROTEIN TOTAL 7.2 g/dL (6.0-8.3); UREA NITROGEN BLOOD 12 mg/dL (9-23)
[2025-04-30 15:28] LABS: ASPARTATE AMINOTRANSFERASE 48 IU/L (<34); BILIRUBIN DIRECT 0.2 mg/dL (<=3.0)
[2025-04-30 15:29] LABS: BILIRUBIN TOTAL 0.7 mg/dL (0.1-1.0)
[2025-04-30] MEDS: SODIUM CHLORIDE 0.9% (SEPSIS BOLUS) IV ONE (15:50)
[2025-04-30] MEDS: MEROPENEM 1G/100ML 100 ML IV SCH (16:06)
[2025-04-30] MEDS: LORAZEPAM 2MG/ML UD SYRINGE IV SCH (16:30)
[2025-04-30] MEDS: VANCOMYCIN 1G PREMIX 200 ML IV ONE (16:39)
[2025-04-30] MEDS: ASPIRIN 325MG EC TABLET PO ONE (18:20)
[2025-04-30 18:35] LABS: CLARITY URINE CLEAR (CLEAR); COLOR URINE YELLOW (YELLOW); GLUCOSE URINE NEGATIVE (NEGATIVE); KETONES URINE NEGATIVE (NEGATIVE); LEUKOCYTE ESTERASE URINE NEGATIVE (NEGATIVE); NITRITE URINE POSITIVE (NEGATIVE); OCCULT BLOOD URINE NEGATIVE (NEGATIVE); PH URINE 7.5 (4.5-8.0); PROTEIN URINE NEGATIVE (NEGATIVE); SPECIFIC GRAVITY URINE 1.050 (1.005-1.030); UROBILINOGEN URINE 1.0 E.U./dL (0.2-1.0)
[2025-04-30 18:43] LABS: *AMPHETAMINES SCREEN URINE NEGATIVE (NEGATIVE); *BARBITURATES SCREEN URINE NEGATIVE (NEGATIVE); *BENZODIAZEPINES SCREEN URINE NEGATIVE (NEGATIVE); *COCAINE SCREEN URINE NEGATIVE (NEGATIVE); CANNABINOID URINE SCREEN NEGATIVE (NEGATIVE); ECSTASY MDMA SCREEN URINE NEGATIVE (NEGATIVE); METHADONE URINE SCREEN NEGATIVE (NEGATIVE); OPIATES URINE SCREEN NEGATIVE (NEGATIVE); PHENCYCLIDINE URINE SCREEN NEGATIVE (NEGATIVE)
[2025-04-30 19:06] LABS: BACTERIA URINE 2+; RBC URINE 0-2 /hpf (0-2); SQUAMOUS EPITHELIAL CELL URINE FEW /lpf (RARE/1+); WBC URINE 0-2 /hpf (0-2)
[2025-04-30 19:07] LABS: INFLUENZA TYPE A Presumptive Negative (Pres. Neg.)
[2025-04-30 19:08] LABS: INFLUENZA TYPE B Presumptive Negative (Pres. Neg.); RESPIRATORY SYNCYTIAL VIRUS Not Detected (Not Detectd)
[2025-04-30 20:00] VITALS: BP 109/86; PULSE 111; RESP 18; TEMP 37.1; O2SAT 93
[2025-04-30] MEDS ORDERED: ONDANSETRON HCL 4MG/2ML INJ IV PRN (20:00)
[2025-04-30] MEDS ORDERED: ZOLPIDEM TARTRATE 5MG TABLET PO PRN (20:00)
[2025-04-30] MEDS ORDERED: DOCUSATE SODIUM 100MG CAPSULE PO PRN (20:00)
[2025-04-30] MEDS ORDERED: DEXTROSE 50% WATER 50ML SYRINGE IV PRN (20:00)
[2025-04-30] MEDS: BLOOD SUGAR DIAGNOSTIC STRIP TEST SCH (21:51)
[2025-04-30] MEDS: ACETAMINOPHEN 325MG TABLET PO PRN (22:21)
[2025-04-30] MEDS: ENOXAPARIN 40MG/0.4ML SYR SUBCUT SCH (22:22)
[2025-04-30] MEDS: SODIUM CHLORIDE 0.9% 3ML FLUSH IVF SCH (22:22)
[2025-04-30] MEDS: INSULIN LISPRO 100 UNITS/ML SUBCUT SCH (22:23)
[2025-04-30] MEDS ORDERED: IOHEXOL-350 100 ML BOTTLE ONE (22:33)
[2025-05-01] VITALS (10 sets, daily range): BP systolic 65–156; BP diastolic 47–86; PULSE 76–111; RESP 17–20; TEMP 36.6–37.2; O2SAT 95–100
[2025-05-01] MEDS: SODIUM CHLORIDE 0.9% 500 ML IV NR (00:48)
[2025-05-01 06:11] LABS: HEMATOCRIT. 41.4 % (36.0-48.0); HEMOGLOBIN. 13.0 g/dL (12.0-16.0); MEAN PLATELET VOLUME 8.6 fl (7.4-10.4); PLATELET 145 x1000/uL (130-400); RED BLOOD CELL COUNT 4.71 mill/uL (4.2-5.4); RED CELL DISTRIBUTION WIDTH 14.3 % (11.6-14.6)
[2025-05-01 06:12] LABS: CREATININE 0.8 mg/dL (0.6-1.0)
[2025-05-01 06:13] LABS: LDL CHOLESTEROL 38 mg/dL (5-100); TRIGLYCERIDE 100 mg/dL (0-150); UREA NITROGEN BLOOD 9 mg/dL (9-23)
[2025-05-01 06:15] LABS: PHOSPHORUS 3.5 mg/dL (2.5-4.9)
[2025-05-01] MEDS: ASPIRIN 81MG EC TABLET PO SCH (08:14)
[2025-05-01] MEDS: CLOPIDOGREL 75MG TABLET PO SCH (08:14)
[2025-05-01] MEDS ORDERED: SODIUM CHLORIDE 0.9% 500 ML IV NR (09:30)
[2025-05-01] MEDS: SODIUM CHLORIDE 0.9% 500 ML IV SCH ×2 (09:35→10:17)
[2025-05-01] MEDS: ENOXAPARIN 30MG/0.3ML SYR SUBCUT SCH (09:36)
[2025-05-01] MEDS ORDERED: MEROPENEM 1,000 MG in SODIUM CHLORIDE 0.9% 100 ML IV SCH (10:30)
[2025-05-01] MEDS: MAGNESIUM 4 G PREMIX 100 ML IV SCH ×2 (11:12→21:42)
[2025-05-01] MEDS: SODIUM CHLORIDE 0.9% 1,000 ML IV SCH (11:12)
[2025-05-01] MEDS: MEROPENEM 1G/100ML IV SCH (12:31)
[2025-05-01] MEDS: VANCOMYCIN 1G PREMIX 200 ML IV SCH (12:32)
[2025-05-01] MEDS: INSULIN LISPRO 100 UNITS/ML SUBCUT SCH (12:40)
[2025-05-01 14:47] LABS: BAND% 5.0 % (1.0-6.0); EOSINOPHILS % MANUAL 1.0 % (0.0-5.0); LYMPHOCYTES % MANUAL 7.0 % (20.0-60.0); MONOCYTES % MANUAL 18.0 % (2.0-8.0); NEUTROPHILS % MANUAL 69.0 % (45.0-75.0); PLATELET ESTIMATE NORMAL
[2025-05-01] MEDS: ACETAMINOPHEN 325MG TABLET PO PRN (15:56)
[2025-05-01] MEDS ORDERED: MAGNESIUM 4 G PREMIX 100 ML IV ONE (17:45)
[2025-05-02] VITALS: BP 163/58; PULSE 117; RESP 20; TEMP 38.5; O2SAT 96
[2025-05-02 04:00] VITALS: BP 153/72; PULSE 100; RESP 21; TEMP 37.2; O2SAT 97
[2025-05-02 08:00] VITALS: BP 121/56; PULSE 74; RESP 20; TEMP 38.6; O2SAT 97
[2025-05-02 12:00] VITALS: BP 109/90; PULSE 100; RESP 20; TEMP 37.8; O2SAT 98
[2025-05-02 12:24] LABS: HEMATOCRIT. 38.6 % (36.0-48.0); HEMOGLOBIN. 12.5 g/dL (12.0-16.0); MEAN PLATELET VOLUME 9.1 fl (7.4-10.4); PLATELET 163 x1000/uL (130-400); RED BLOOD CELL COUNT 4.46 mill/uL (4.2-5.4); RED CELL DISTRIBUTION WIDTH 14.1 % (11.6-14.6)
[2025-05-02 12:58] LABS: CREATININE 0.8 mg/dL (0.6-1.0)
[2025-05-02 12:59] LABS: UREA NITROGEN BLOOD 9 mg/dL (9-23)
[2025-05-02 16:00] VITALS: BP 101/56; PULSE 100; RESP 20; TEMP 37.6; O2SAT 100
[2025-05-02 20:00] VITALS: BP 102/42; PULSE 104; RESP 16; TEMP 39.4; O2SAT 99
[2025-05-02] MEDS: DOXYCYCLINE HYCLATE 100MG CAPSULE PO SCH (20:50)
[2025-05-02 21:43] LABS: INFLUENZA TYPE A Presumptive Negative (Pres. Neg.)
[2025-05-02 21:45] LABS: INFLUENZA TYPE B Presumptive Negative (Pres. Neg.)
[2025-05-03] VITALS (9 sets, daily range): BP systolic 87–98; BP diastolic 47–65; PULSE 79–108; RESP 16–20; TEMP 36.7–39; O2SAT 98–100
[2025-05-03 01:52] LABS: EOSINOPHILS % MANUAL 6.0 % (0.0-5.0); LYMPHOCYTES % MANUAL 9.0 % (20.0-60.0); MONOCYTES % MANUAL 9.0 % (2.0-8.0); NEUTROPHILS % MANUAL 76.0 % (45.0-75.0)
[2025-05-03 01:53] LABS: PLATELET ESTIMATE NORMAL
[2025-05-03] MEDS: MIDODRINE HCL 2.5MG TABLET PO SCH (08:31)
[2025-05-03 13:58] LABS: HEMATOCRIT. 36.8 % (36.0-48.0); HEMOGLOBIN. 11.8 g/dL (12.0-16.0); MEAN PLATELET VOLUME 8.7 fl (7.4-10.4); PLATELET 127 x1000/uL (130-400); RED BLOOD CELL COUNT 4.21 mill/uL (4.2-5.4); RED CELL DISTRIBUTION WIDTH 14.3 % (11.6-14.6)
[2025-05-03] MEDS: VANCOMYCIN 1G PREMIX 200 ML IV SCH (14:16)
[2025-05-03 14:22] LABS: CREATININE 0.8 mg/dL (0.6-1.0); UREA NITROGEN BLOOD 7 mg/dL (9-23)
[2025-05-03 14:24] LABS: ASPARTATE AMINOTRANSFERASE 87 IU/L (<34)
[2025-05-03 14:25] LABS: BILIRUBIN DIRECT 0.2 mg/dL (<=3.0); BILIRUBIN TOTAL 0.6 mg/dL (0.1-1.0)
[2025-05-03 14:47] LABS: PROTEIN TOTAL 5.1 g/dL (6.0-8.3)
[2025-05-03] MEDS ORDERED: MIDODRINE HCL 5MG TABLET PO SCH (23:30)
[2025-05-04] VITALS: BP 123/86; PULSE 101; RESP 18; TEMP 37; O2SAT 100
[2025-05-04] MEDS: MIDODRINE HCL 5MG TABLET PO SCH ×2 (00:26→22:00)
[2025-05-04] MEDS: SODIUM CHLORIDE 0.9% 500 ML IV ONE ×2 (00:27)
[2025-05-04] MEDS: ALBUMIN HUMAN 12.5GM/50ML (25%) IV NR (00:36)
[2025-05-04 02:42] LABS: TROPONIN I HIGH SENSITIVITY 137 ng/L (3.0-34)
[2025-05-04 04:00] VITALS: BP 116/72; PULSE 86; RESP 16; TEMP 36.7; O2SAT 100
[2025-05-04] MEDS ORDERED: MIDODRINE HCL 5MG TABLET PO SCH (06:00)
[2025-05-04 08:00] VITALS: BP 150/46; PULSE 86; RESP 20; TEMP 37; O2SAT 98
[2025-05-04 09:25] LABS: BASOPHILS % 0.1 % (0.0-2.0); EOSINOPHILS % 8.4 % (0.0-5.0); HEMATOCRIT. 31.2 % (36.0-48.0); HEMOGLOBIN. 9.9 g/dL (12.0-16.0); LYMPHOCYTES % 9.5 % (20.0-50.0); MEAN PLATELET VOLUME 8.4 fl (7.4-10.4); MONOCYTES % 6.3 % (2.0-8.0); NEUTROPHILS % 75.7 % (40.0-76.0); PLATELET 127 x1000/uL (130-400); RED BLOOD CELL COUNT 3.56 mill/uL (4.2-5.4); RED CELL DISTRIBUTION WIDTH 14.3 % (11.6-14.6)
[2025-05-04 09:39] LABS: CREATININE 0.7 mg/dL (0.6-1.0); UREA NITROGEN BLOOD 8 mg/dL (9-23)
[2025-05-04 10:58] LABS: PROTEIN TOTAL 4.8 g/dL (6.0-8.3)
[2025-05-04 10:59] LABS: ASPARTATE AMINOTRANSFERASE 72 IU/L (<34); BILIRUBIN DIRECT 0.2 mg/dL (<=3.0)
[2025-05-04 11:00] LABS: BILIRUBIN TOTAL 0.5 mg/dL (0.1-1.0)
[2025-05-04] MEDS: MAGNESIUM/ALUMINUM HYDROXIDE/SIMETHICONE 30ML UDC PO PRN (11:38)
[2025-05-04 12:30] VITALS: BP 78/48; PULSE 86; RESP 20; TEMP 36.6; O2SAT 100
[2025-05-04 16:10] VITALS: BP 160/62; PULSE 74; RESP 20; TEMP 36.8; O2SAT 99
[2025-05-04 19:49] LABS: EOSINOPHILS % MANUAL 2.0 % (0.0-5.0); LYMPHOCYTES % MANUAL 5.0 % (20.0-60.0); MONOCYTES % MANUAL 5.0 % (2.0-8.0); NEUTROPHILS % MANUAL 88.0 % (45.0-75.0); PLATELET ESTIMATE DECREASED
[2025-05-04 20:00] VITALS: BP 82/52; PULSE 89; RESP 18; TEMP 36.8; O2SAT 96
[2025-05-05] VITALS: BP 144/64; PULSE 90; RESP 18; TEMP 36.8; O2SAT 98
[2025-05-05] MEDS: DIPHENHYDRAMINE 50MG/ML VIAL IV PRN (03:36)
[2025-05-05 04:00] VITALS: BP 128/66; PULSE 88; RESP 18; TEMP 37; O2SAT 97
[2025-05-05 08:00] VITALS: BP 121/37; PULSE 84; RESP 18; TEMP 37.1; O2SAT 97
[2025-05-05 12:00] VITALS: BP 143/81; PULSE 83; RESP 18; TEMP 35.6; O2SAT 98
[2025-05-05 16:30] VITALS: BP 148/49; PULSE 82; RESP 18; TEMP 36.4; O2SAT 98
[2025-05-05 20:00] VITALS: BP 113/56; PULSE 88; RESP 20; TEMP 37; O2SAT 97
[2025-05-06] VITALS: BP 110/80; PULSE 92; RESP 18; TEMP 37.1; O2SAT 97
[2025-05-06 04:00] VITALS: BP 108/77; PULSE 78; RESP 18; TEMP 37; O2SAT 98
[2025-05-06 08:00] VITALS: BP 100/53; PULSE 82; RESP 18; TEMP 36.7; O2SAT 99
[2025-05-06 12:00] VITALS: BP 149/56; PULSE 85; RESP 18; TEMP 36.2; O2SAT 98
[2025-05-06] MEDS: PANTOPRAZOLE 40MG DR TABLET PO SCH (12:54)
[2025-05-06 16:00] VITALS: BP 135/57; PULSE 87; RESP 18; TEMP 36.6; O2SAT 98
[2025-05-06 20:00] VITALS: BP 155/41; PULSE 87; RESP 18; TEMP 36.9; O2SAT 99
[2025-05-06 22:22] LABS: CREATININE 0.8 mg/dL (0.6-1.0); UREA NITROGEN BLOOD 9 mg/dL (9-23)
[2025-05-06 22:25] LABS: PHOSPHORUS 2.2 mg/dL (2.5-4.9)
[2025-05-06 22:32] LABS: HEMATOCRIT. 32.7 % (36.0-48.0); HEMOGLOBIN. 10.6 g/dL (12.0-16.0); MEAN PLATELET VOLUME 8.2 fl (7.4-10.4); PLATELET 170 x1000/uL (130-400); RED BLOOD CELL COUNT 3.84 mill/uL (4.2-5.4); RED CELL DISTRIBUTION WIDTH 14.6 % (11.6-14.6)
[2025-05-06 23:33] LABS: BASOPHILS % MANUAL 1.0 % (0.0-2.0); EOSINOPHILS % MANUAL 6.0 % (0.0-5.0); LYMPHOCYTES % MANUAL 36.0 % (20.0-60.0); MONOCYTES % MANUAL 10.0 % (2.0-8.0); NEUTROPHILS % MANUAL 47.0 % (45.0-75.0); PLATELET ESTIMATE NORMAL
[2025-05-07] VITALS: BP 152/44; PULSE 80; RESP 18; TEMP 36.9; O2SAT 96
[2025-05-07 04:00] VITALS: BP 163/53; PULSE 89; RESP 18; TEMP 37; O2SAT 98
[2025-05-07 04:07] LABS: MYCOPLASMA PNEUMONIAE IGG 225 U/mL (0-99); MYCOPLASMA PNEUMONIAE IGM < 770 U/mL (0-769)
[2025-05-07] MEDS: CLONIDINE 0.1MG TABLET PO PRN (05:13)
[2025-05-07 08:00] VITALS: BP 134/51; PULSE 98; RESP 18; TEMP 35.6; O2SAT 98
[2025-05-07 12:00] VITALS: BP 126/46; PULSE 92; RESP 18; TEMP 36.7; O2SAT 98
[2025-05-07] MEDS ORDERED: MAGNESIUM 4 G PREMIX 100 ML IV NR (14:00)
[2025-05-07] MEDS: POTASSIUM PHOSPHATE 20 MMOL in DEXT 5% WATER 243.3333 ML IV NR (14:25)
[2025-05-07 16:00] VITALS: BP 132/80; PULSE 85; RESP 18; TEMP 35.9; O2SAT 98
[2025-05-07] MEDS: MAGNESIUM 4 G PREMIX 100 ML IV NR (18:53)
[2025-05-07 20:00] VITALS: BP 156/52; PULSE 68; RESP 19; TEMP 36.7; O2SAT 98
[2025-05-08] VITALS: BP 142/62; PULSE 72; RESP 18; TEMP 36.5; O2SAT 97
[2025-05-08 08:00] VITALS: BP 167/64; PULSE 86; RESP 18; TEMP 36.4; O2SAT 95
[2025-05-08 12:00] VITALS: BP 143/50; PULSE 82; RESP 16; TEMP 36.5; O2SAT 95
[2025-05-08 16:00] VITALS: BP 136/65; PULSE 85; RESP 18; TEMP 36.4; O2SAT 98
[2025-05-08 20:00] VITALS: BP 130/64; PULSE 91; RESP 18; TEMP 36.1; O2SAT 99
[2025-05-09 04:00] VITALS: BP 135/65; PULSE 94; RESP 18; TEMP 36.7; O2SAT 93
[2025-05-09 08:00] VITALS: BP 151/55; PULSE 91; RESP 20; TEMP 37.8; O2SAT 95
[2025-05-09 12:00] VITALS: BP 114/60; PULSE 84; RESP 19; TEMP 37.2; O2SAT 97
[2025-05-09 16:00] VITALS: BP 124/63; PULSE 88; RESP 19; TEMP 37.1; O2SAT 98
[2025-05-09 20:00] VITALS: BP 172/96; PULSE 87; RESP 19; TEMP 36.6
[2025-05-10 04:00] VITALS: BP 172/96; PULSE 87; RESP 19; TEMP 36.6; O2SAT 96
[2025-05-10 08:00] VITALS: BP_SYST 112; BP_SYST 190; BP_DIAS 118; BP_DIAS 61; PULSE 64; PULSE 85; RESP 18; TEMP 36.1; O2SAT 100
[2025-05-10 12:00] VITALS: BP 171/57; PULSE 85; RESP 19; TEMP 36.6; O2SAT 98
[2025-05-10 16:00] VITALS: BP 152/87; PULSE 86; RESP 18; TEMP 36.1; O2SAT 97
[2025-05-11 08:00] VITALS: BP 154/54; PULSE 86; RESP 19; TEMP 36.5; O2SAT 96
[2025-05-11 12:00] VITALS: BP 120/95; PULSE 19; RESP 19; TEMP 36.7; O2SAT 98
[2025-05-11 16:00] VITALS: BP 153/50; PULSE 79; RESP 18; TEMP 36.3; O2SAT 97
[2025-05-11 20:00] VITALS: BP 151/55; PULSE 87; RESP 20; TEMP 36.8; O2SAT 98
[2025-05-12] VITALS: BP 155/68; PULSE 84; RESP 20; TEMP 36.6; O2SAT 100
[2025-05-12 04:00] VITALS: BP 156/59; PULSE 92; RESP 20; TEMP 36.5; O2SAT 95
[2025-05-12 08:00] VITALS: BP 93/60; PULSE 79; RESP 17; TEMP 36.4; O2SAT 97
[2025-05-12] MEDS: FAMOTIDINE 20MG TABLET PO SCH (08:57)
[2025-05-12 12:00] VITALS: BP 105/65; PULSE 78; RESP 18; TEMP 36.6; O2SAT 99
[2025-05-12 16:00] VITALS: BP 94/58; PULSE 84; RESP 16; TEMP 36.1; O2SAT 100
[2025-05-12] MEDS ORDERED: CLOP-31 PO (18:28)
[2025-05-12] MEDS ORDERED: ASPI-1406 PO (18:28)
[2025-05-12 20:00] VITALS: BP 160/52; PULSE 19; RESP 19; TEMP 36.4; O2SAT 99
[2025-05-13] VITALS: BP 142/85; PULSE 87; RESP 20; TEMP 36.4; O2SAT 100
[2025-05-13 04:00] VITALS: BP 120/80; PULSE 86; RESP 20; TEMP 36.3; O2SAT 99
[2025-05-13 14:24] VITALS: BP 96/65; PULSE 75; RESP 18; TEMP 98
== END 2025-05-13 16:00 | disposition home or self-care (01) | DRG 871 ==
LOC: ER 14:25 → 8WST 17:32 → EDBEDREQ 17:58 → ENRESERV 18:07 → 6EST 05-08 00:22
PROVIDERS: ADMIT Internal Medicine; ATTEND Internal Medicine
DX: A41.9 Sepsis, unspecified organism (principal); G93.41 Metabolic encephalopathy; M62.82 Rhabdomyolysis; Z68.43 Body mass index [BMI] 50.0-59.9, adult; D69.6 Thrombocytopenia, unspecified; I27.20 Pulmonary hypertension, unspecified; E11.9 Type 2 diabetes mellitus without complications; I10 Essential (primary) hypertension; I65.22 Occlusion and stenosis of left carotid artery; Z20.822 Contact with and (suspected) exposure to COVID-19; E66.9 Obesity, unspecified; J06.9 Acute upper respiratory infection, unspecified; E83.42 Hypomagnesemia; Z75.1 Person awaiting admission to adequate facility elsewhere; Z86.16 Personal history of COVID-19; Z88.0 Allergy status to penicillin; Z99.3 Dependence on wheelchair; F41.9 Anxiety disorder, unspecified
CPT/HCPCS: 36415; 70496; 70498; 70551; 71045; 80048; 80061; 80076; 80202; 80305; 80320; 81003; 82550; 82962; 83036; 83605; 83735; 83880; 84100; 84145; 84443; 84484; 85025; 85651; 86635; 86738; 87420; 87426; 87804; 93005; 93970; 97110; 97162; 97166; 97530; 99285; A4565; A4606; J1200; J1650; J1815; J2060; J2185; J3373; J3475; J3490; J7030; J7060; P9047; Q9967; G0480